=== PATIENT | female | born 1995 | race Caucasian/White ===

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

== ENCOUNTER 2017-12-22 22:22 | Emergency (ER) | payer SELFPAY ==
[~2017-12-22] VITALS: Ht 170.2 cm; Wt 52.2 kg
[2017-12-22 22:28] VITALS: Ht 170.2 cm; Wt 52.2 kg
[2017-12-22 23:02] LABS: HCG SERUM NEGATIVE (NEGATIVE)
[2017-12-22 23:04] LABS: BASOPHILS 0.5 % (0-2); EOSINOPHILS 5.5 % (0-7); HEMATOCRIT 40.3 % (36.0-48.0); IMMATURE GRANULOCYTES 0.1 % (0-5); LYMPHOCYTES 43.8 % (15-50); MCH 27.7 pg (26.0-34.0); MCHC 32.3 g/dL (31.0-37.0); MCV 85.9 fL (80.0-100.0); MEAN PLATELET VOLUME 10.2 fL (7.4-10.4); MONOCYTES 4.9 % (2-11); NEUTROPHILS 45.2 % (40-80); PLATELET COUNT 280 10x3/uL (130-400); RBC 4.69 10x6/uL (4.00-5.40); RDW 14.4 % (11.5-14.5); WBC 8.4 10x3/uL (4.8-10.8)
[2017-12-22 23:09] LABS: ALBUMIN 4.2 g/dL (3.4-5.0); ALKALINE PHOSPHATASE 65 U/L (46-116); ALT (SGPT) 16 U/L (10-68); BILIRUBIN - TOTAL 0.31 mg/dL (0.2-1.3); CALC OSMOLALITY 277 mosm/kg (275-300); CALCIUM 8.8 mg/dL (8.5-10.1); CARBON DIOXIDE 24.8 mmol/L (21.0-32.0); CHLORIDE - SERUM 105 mmol/L (98-107); CREATININE - SERUM 0.8 mg/dL (0.6-1.3); GLUCOSE 92 mg/dL (74-106); POTASSIUM - SERUM 3.6 mmol/L (3.5-5.1); SODIUM 138 mmol/L (136-145); UREA NITROGEN 19 mg/dL (7-18); eGFR NON AFRICAN AMERICAN > 90 mL/min (90-120)
[2017-12-22 23:19] LABS: APPEARANCE HAZY (CLEAR); BACTERIA NONE SEEN /hpf (NONE SEEN); BILIRUBIN NEGATIVE (NEGATIVE); COLOR YELLOW (YELLOW); EPITHELIAL CELLS 0-5 /hpf (0-5); GLUCOSE NEGATIVE (NEGATIVE); KETONE NEGATIVE (NEGATIVE); NITRITE NEGATIVE (NEGATIVE); PROTEIN TRACE mg/dL (NEGATIVE); SPECIFIC GRAVITY 1.015 (1.005-1.020); UROBILINOGEN NORMAL (NORMAL); WHITE CELLS - URINE 0-5 /hpf (0-5)
[2017-12-23] MEDS ORDERED: ROBAXIN500 MG PO (00:25)
[2017-12-23 01:02] VITALS: BP 108/60
[2017-12-26 10:24] LABS: CHLAMYDIA TRACHOMATIS, NAA Negative (Negative)
== END 2017-12-23 01:02 | disposition home or self-care (01) ==
LOC: D.ER 22:22
PROVIDERS: Family Medicine
DX: N93.8 Other specified abnormal uterine and vaginal bleeding (principal)